=== PATIENT | female | born 1995 | race Caucasian/White ===

== ENCOUNTER 2020-11-09 20:37 | Emergency (ER) | payer BC, SELFPAY ==
[2020-11-09 20:55] VITALS: BP 136/73; PULSE 98; RESP 17; TEMP 36.8; O2SAT 98; BMI 32.2
--- NOTE | 2020-11-09 21:14 | PC.NURSE ---
called [facility] for records. found out patient registered under [facility].
--- NOTE | 2020-11-09 21:56 | XR_ITS ---
PROCEDURE: XR CHEST 2V CLINICAL HISTORY: SHORTNESS OF AIR Chest pain, smoker COMPARISON: No exams were available for comparison FINDINGS: The cardiomediastinal silhouette and pulmonary vascularity are within normal limits. The lungs are clear without infiltrates, suspicious nodules, or pleural effusions. There is mild blunting of left costophrenic angle probably due to scarring. There are partially calcified hilar nodes bilaterally. No acute bony abnormalities. IMPRESSION: No acute findings. Dictated by: Dr. Romaine Roth MD 11/10/2020 08:35 Dr. Romaine Roth MD in [place] 11/10/2020 08:35
[2020-11-09 22:01] LABS: Microscopic, Urine URINE MICROSCOPIC (MICROSCOPIC)
[2020-11-09 22:08] LABS: Appearance,Urine CLEAR (Clear); Bilirubin,Urine Negative (Negative); Blood, Urine Negative (Negative); Color,Urine YELLOW (Yellow); Glucose,Urine (UA) Negative (Negative); Ketones,Urine Negative (Negative); Leukocyte Esterase,Urine Negative (Negative); Nitrate,Urine Negative (Negative); Protein,Urine Negative (Negative); Specific Gravity, Urine 1.015 (1.005-1.030); Urobilinogen,Urine 0.2 EU/dl (0.2)
[2020-11-09 22:10] LABS: Urine Pregnancy, HCG Qual. Negative (Negative)
[2020-11-09 22:30] VITALS: BP 111/77; PULSE 86; RESP 16; O2SAT 100
[2020-11-09 22:34] LABS: Chloride 105 mmol/L (98-107); Potassium 3.6 mmoL/L (3.5-5.1); Sodium 139 mmol/L (136-145)
[2020-11-09 22:37] LABS: Anion Gap 10.6 mEq/L (5-15); Blood Urea Nitrogen 5 mg/dl (7-17); Calcium 8.9 mg/dl (8.4-10.2); Carbon Dioxide 27 mmol/L (22.0-30.0); Creatinine Clearance Estimated 168 mL/min (50-200); Estimated Glomerular Filt Rate 121 ml/min (>60); GFR (African American) 146 ML/MIN (>60); Glucose 98 mg/dl (74-100)
[2020-11-09 22:41] LABS: Basophils # 0.1 K/mm3 (0-0.2); Basophils % 0.8 % (0.1-2.0); Eosinophils # 0.4 K/mm3 (0.0-0.4); Eosinophils % 6.3 % (0.1-12.0); Hematocrit 37.7 % (37.0-47.0); Hemoglobin 12.6 g/dL (12.2-16.2); Lymphocytes # 2.2 K/mm3 (0.7-4.5); Lymphocytes % 34.9 % (10-50); Mean Corpuscular HGB Conc 33.4 g/dL (31.8-35.4); Mean Corpuscular Hemoglobin 30.1 pg (27.0-31.2); Mean Corpuscular Volume 90.2 fl (81-99); Mean Platelet Volume 6.9 fl (7.4-10.4); Monocytes # 0.5 K/mm3 (0.1-1.0); Monocytes % 8.4 % (1.7-9.3); Neutrophils # 3.2 K/mm3 (1.8-7.8); Neutrophils % 49.6 % (37.0-80.0); Platelet Count 253 K/mm3 (142-424); Red Blood Count 4.18 M/mm3 (4.20-5.40); White Blood Count 6.4 K/mm3 (4.8-10.8)
[2020-11-09 23:00] VITALS: BP 115/72; PULSE 93; RESP 16; O2SAT 100
--- NOTE | 2020-11-09 23:24 | HMH.EDSOB ---
ED Disposition Clinical Impression: Bronchitis Disposition: Home, Self-Care Condition on Discharge: Good Instructions: DI for Shortness of Breath Additional Instructions: see pcp for follow up next week Prescriptions: predniSONE [Prednisone 20mg Tab] 20 mg PO BID #10 tab Transmission Status: Pending to [id number] Referrals: PCP,No [Primary Care Provider] - - Critical Care Critical Care Time: No Attestation: On 11/09/20, the high probability of a clinically significant, sudden or life threatening deterioration of the following system(s) required my full and direct attention, intervention and personal management. The time I documented below is in addition to time spent performing reported procedures but includes the following listed in this critical care notation. Medical Decision Making - Medical Records Medical records reviewed: Yes: I reviewed the patient's medical records. - Charles Inquiry Pt receiving controlled substance: No Vital Signs: 11/09/20 20:55 Temperature 98.2 F Temperature Source Oral Pulse Rate [Right Brachial] 98 H Respiratory Rate 17 Blood Pressure [Right Arm] 136/73 Blood Pressure Mean [Right Arm] 94 Blood Pressure Source [Right Arm] Automatic Cuff Blood Pressure Position [Right Arm] Sitting 02 Sat by Pulse Oximetry 98 Oxygen Delivery Method Room Air - Lab Data Lab results reviewed: Yes: I reviewed the patient's lab results. Lab Results 11/09/20 21:00: Urine Color Yellow, Urine Appearance Clear, Urine pH 6.0, Ur Specific [place] 1.015, Urine Protein Negative, Urine Glucose (UA) Negative, Urine Ketones Negative, Urine Blood Negative, Urine Nitrate Negative, Urine Bilirubin Negative, Urine Urobilinogen 0.2, Ur Leukocyte Esterase Negative, Ur Squamous Epith Cells 10-20 11/09/20 21:00: Urine HCG, Qual Negative 11/09/20 22:15: WBC 6.4, RBC 4.18 L, Hgb 12.6, Hct 37.7, MCV 90.2, MCH 30.1, MCHC 33.4, RDW 14.0, Plt Count 253, MPV 6.9 L, Neut % (Auto) 49.6, Lymph % (Auto) 34.9, [place] % (Auto) 8.4, Eos % (Auto) 6.3, Baso % (Auto) 0.8, Neut # (Auto) 3.2, Lymph # (Auto) 2.2, [place] # (Auto) 0.5, Eos # (Auto) 0.4, Baso # (Auto) 0.1 11/09/20 22:15: Sodium 139, Potassium 3.6, Chloride 105, Carbon Dioxide 27, Anion Gap 10.6, BUN 5 L, Creatinine 0.60, Estimated Creat Clear 168, Estimated GFR 121, Est GFR ( Amer) 146, Glucose 98, Calcium 8.9 Result diagrams: 11/09/20 22:15 11/09/20 22:15 Orders (Tests/Meds): ORDERS Category Date Time Status Chest XR 2 view (NOT portable) [XR chest 2V] Stat Exams 11/09/20 21:56 Taken - Radiology Data #1 Image(s): Chest Image Reviewed: Yes I reviewed the patient's radiology image Preliminary Findings: Normal/NAD Medical Decision Narrative: will need to follow up with pcp at this time Resp/SOB HPI - General Chief Complaint: Shortness of Breath/Dyspnea Stated Complaint: cough,congestion Time Seen by Provider: 11/09/20 22:00 Mode of Arrival: Family Vehicle Source of Information: Patient, Medical Record Limitations: No Limitations Description of Symptoms (Recalled from ER Triage Doc. by RN): states she was diagnosed with the type a flu and pneumonia at [facility] in the last two days and placed on two atb's one of which was azithromycin and she doesn't know the otherone. she states she breathes heavy, sees black spots, and then falls out . denies any fever, states she feels worse than she ever did . - History of Present Illness pt reports resp illness and seen at [facility] and [facility] - no covid -19 but has flu - still does not feel well on meds however Complaint: shortness of breath Context: recent illness Severity: moderate Associated symptoms: denies other symptoms - Related Data Home oxygen amount: none Previous Rx's Medication Instructions Recorded predniSONE [Prednisone 20mg 20 mg PO BID #10 tab 11/10/20 Tab] Allergies Allergy/AdvReac Type Severity Re
[2020-11-10 00:32] VITALS: BP 113/77; PULSE 83; RESP 16; TEMP 36.6; O2SAT 98
== END 2020-11-10 00:41 | disposition home or self-care (01) ==
PROVIDERS: Emergency Provider Emergency Medicine
DX: J20.9 Acute bronchitis, unspecified (principal)
CPT/HCPCS: 71046; 80048; 81001; 81025; 85025; 96374; 99283

== ENCOUNTER 2020-12-31 10:20 | Emergency (ER) | payer BC, SELFPAY ==
[2020-12-31 10:21] VITALS: BP 114/87; PULSE 103; RESP 20; TEMP 36.9; O2SAT 97; BMI 33.5
[2020-12-31 10:36] VITALS: BMI 33.5
--- NOTE | 2020-12-31 10:40 | US_ITS ---
PROCEDURE: US TRANSVAGINAL CLINICAL INDICATION: LLQ pain COMPARISON: No exams were available for comparison FINDINGS: UTERUS: 6cm x 4cmx 3cm with a combined endometrial thickness of 4.4mm LEFT OVARY: [id number] with a volume of 5.9ml. RIGHT OVARY: [id number] with a volume of 10ml. Small bilateral ovarian follicles noted. No cul-de-sac fluid apparent. IMPRESSION: Negative pelvic ultrasound Dictated by: Jono Stockton MD 12/31/2020 13:19 Jono Stockton MD in [place] 12/31/2020 13:19
--- NOTE | 2020-12-31 10:41 | PC.NURSE ---
Calling [facility] to request CT scan results per ER physician request
[2020-12-31 10:42] LABS: MANUAL DIFFERENTIAL MANUAL DIFFERENTIAL (MANUAL DIFF)
[2020-12-31 10:42] LABS: Microscopic, Urine URINE MICROSCOPIC (MICROSCOPIC)
--- NOTE | 2020-12-31 10:42 | HMH.EDGENADL ---
ED Disposition Clinical Impression: Abdominal distention, Bloating, Gastrointestinal food sensitivity Ovarian cyst Qualifiers: Laterality: bilateral Qualified Code(s): N83.201 - Unspecified ovarian cyst, right side; N83.202 - Unspecified ovarian cyst, left side Disposition: Home, Self-Care Condition on Discharge: Fair Instructions: DI for Acute Abdominal Pain, DI for Irritable Bowel Syndrome, DI for Ovarian Cyst Additional Instructions: You have been evaluated for abdominal distention, pain. Possibly due to ovarian cysts. Possibly due to food sensitivities. Please follow a food elimination diet. Go 2 weeks without eating lactose. Then 2 weeks without eating gluten. See if this changes your symptoms. Follow-up with your primary care doctor. You may need to see gastroenterology. Return to the emergency department for any new or worsening symptoms, pain, vomiting, other concerns. Referrals: Matthias Baires MD [Primary Care Provider] - Time of Disposition: 11:38 - Critical Care Critical Care Time: No Attestation: On 12/31/20, the high probability of a clinically significant, sudden or life threatening deterioration of the following system(s) required my full and direct attention, intervention and personal management. The time I documented below is in addition to time spent performing reported procedures but includes the following listed in this critical care notation. Medical Decision Making - Medical Records Medical records reviewed: Yes: I reviewed the patient's medical records. - Charles Inquiry Pt receiving controlled substance: No Vital Signs: 12/31/20 10:21 Temperature 98.5 F Temperature Source Oral Pulse Rate [Left Radial] 103 H Respiratory Rate 20 Blood Pressure [Right Arm] 114/87 Blood Pressure Mean [Right Arm] 96 Blood Pressure Source [Right Arm] Automatic Cuff Blood Pressure Position [Right Arm] Sitting 02 Sat by Pulse Oximetry 97 Oxygen Delivery Method Room Air - Lab Data Lab Results 12/31/20 10:26: Urine Color Yellow, Urine Appearance Clear, Urine pH 8.5, Ur Specific [place] 1.015, Urine Protein Negative, Urine Glucose (UA) Negative, Urine Ketones Negative, Urine Blood Negative, Urine Nitrate Negative, Urine Bilirubin Negative, Urine Urobilinogen 1.0, Ur Leukocyte Esterase Trace, Urine RBC None, Urine WBC 3-5, Ur Squamous Epith Cells 5-10, Urine Bacteria None 12/31/20 10:26: Urine HCG, Qual Negative 12/31/20 10:33: WBC 4.2 L, RBC 4.33, Hgb 13.2, Hct 38.5, MCV 89.0, MCH 30.5, MCHC 34.3, RDW 13.0, Plt Count 234, MPV 7.5, Neut % (Auto) 51.9, Lymph % (Auto) 34.1, [place] % (Auto) 9.5 H, Eos % (Auto) 3.7, Baso % (Auto) 0.8, Neut # (Auto) 2.2, Lymph # (Auto) 1.4, [place] # (Auto) 0.4, Eos # (Auto) 0.2, Baso # (Auto) 0.0, Total Counted 100, Neutrophils % (Manual) 50, Lymphocytes % (Manual) 37, Monocytes % (Manual) 8, Eosinophils % (Manual) 5 H, Platelet Estimate Normal, RBC Morphology Normal 12/31/20 10:33: Sodium 139, Potassium 3.9, Chloride 109 H, Carbon Dioxide 26, Anion Gap 7.9, BUN 7, Creatinine 0.50 L, Estimated Creat Clear 210, Estimated GFR 149, Est GFR ( Amer) 180, Glucose 117 H, Calcium 8.6, Total Bilirubin 0.3, AST 30, ALT 14, Alkaline Phosphatase 83, Total Protein 6.6, Albumin 3.9, Globulin 2.7, Albumin/Globulin Ratio 1.4 12/31/20 10:33: Lipase 119 Result diagrams: 12/31/20 10:33 12/31/20 10:33 Orders (Tests/Meds): ORDERS Category Date Time Status US RUQ [US abdomen limited] Stat Exams 12/31/20 10:40 Ordered US Pelvic Stat Ultrasound 12/31/20 10:40 Ordered Medical Decision Narrative: In summary this is a 25-year-old female presenting to the emergency department with left-sided abdominal pain. Patient clinically stable on arrival. Vital signs within normal limits. Description of symptoms is most consistent with food sensitivity, IBS, constipation, colitis. Also concern for biliary tract pathology, ovarian cyst. Will obtain CBC, CMP, lipase, urinalysis, right upper quadrant ul
[2020-12-31 10:45] LABS: Basophils % 0.8 % (0.1-2.0); Eosinophils # 0.2 K/mm3 (0.0-0.4); Eosinophils % 3.7 % (0.1-12.0); Hematocrit 38.5 % (37.0-47.0); Hemoglobin 13.2 g/dL (12.2-16.2); Lymphocytes # 1.4 K/mm3 (0.7-4.5); Lymphocytes % 34.1 % (10-50); Mean Corpuscular HGB Conc 34.3 g/dL (31.8-35.4); Mean Corpuscular Hemoglobin 30.5 pg (27.0-31.2); Mean Platelet Volume 7.5 fl (7.4-10.4); Monocytes # 0.4 K/mm3 (0.1-1.0); Monocytes % 9.5 % (1.7-9.3); Neutrophils # 2.2 K/mm3 (1.8-7.8); Neutrophils % 51.9 % (37.0-80.0); Platelet Count 234 K/mm3 (142-424); Red Blood Count 4.33 M/mm3 (4.20-5.40); White Blood Count 4.2 K/mm3 (4.8-10.8)
[2020-12-31 10:47] LABS: Appearance,Urine CLEAR (Clear); Bilirubin,Urine Negative (Negative); Blood, Urine Negative (Negative); Color,Urine YELLOW (Yellow); Glucose,Urine (UA) Negative (Negative); Ketones,Urine Negative (Negative); Leukocyte Esterase,Urine TRACE (Negative); Nitrate,Urine Negative (Negative); PH,Urine 8.5 (5.0-8.5); Protein,Urine Negative (Negative); Specific Gravity, Urine 1.015 (1.005-1.030)
[2020-12-31 10:48] LABS: Urine Pregnancy, HCG Qual. Negative (Negative)
[2020-12-31 10:51] LABS: Lipase 119 U/L (23-300)
[2020-12-31 10:52] LABS: Alanine Aminotransferase 14 U/L (12-78); Albumin Level 3.9 g/dl (3.5-5.0); Albumin/Globulin Ratio 1.4 (1.1-1.8); Alkaline Phosphatase 83 U/L (38-126); Anion Gap 7.9 mEq/L (5-15); Aspartate Amino Transferase 30 U/L (14-36); Bilirubin,Total 0.3 mg/dl (0.2-1.3); Blood Urea Nitrogen 7 mg/dl (7-17); Calcium 8.6 mg/dl (8.4-10.2); Carbon Dioxide 26 mmol/L (22.0-30.0); Chloride 109 mmol/L (98-107); Creatinine Clearance Estimated 210 mL/min (50-200); Estimated Glomerular Filt Rate 149 ml/min (>60); GFR (African American) 180 ML/MIN (>60); Globulin 2.7 g/dL (1.3-3.2); Glucose 117 mg/dl (74-100); Potassium 3.9 mmoL/L (3.5-5.1); Sodium 139 mmol/L (136-145); Total Protein,Serum 6.6 g/dl (6.3-8.2)
--- NOTE | 2020-12-31 10:57 | PC.NURSE ---
Faxed PHI form signed by patient to [facility] at [phone]
[2020-12-31 11:01] VITALS: BP 110/68; PULSE 81; O2SAT 100
--- NOTE | 2020-12-31 11:24 | PC.NURSE ---
Patient gone to rad.
[2020-12-31 11:26] LABS: Eosinophils % 5 % (0-3); Lymphocytes % 37 % (10-50); Monocytes % 8 % (2-9); Neutrophils % 50 % (42-76); Total Cells Counted 100
[2020-12-31 11:27] LABS: Platelet Estimate Normal; RBC Morphology Normal
[2020-12-31 11:40] VITALS: BP 113/72; PULSE 80; O2SAT 99
--- NOTE | 2020-12-31 11:41 | PC.NURSE ---
Gave preliminary US report from [facility]
[2020-12-31 12:00] VITALS: BP 117/81; PULSE 79; O2SAT 98
[2020-12-31 12:35] VITALS: BP 117/81; PULSE 79; RESP 19; TEMP 36.9; O2SAT 98
== END 2020-12-31 12:36 | disposition home or self-care (01) ==
PROVIDERS: Emergency Provider Emergency Medicine; PCP Family Medicine
DX: T78.1XXA Other adverse food reactions, not elsewhere classified, initial encounter (principal); R14.0 Abdominal distension (gaseous); N83.201 Unspecified ovarian cyst, right side; F17.210 Nicotine dependence, cigarettes, uncomplicated; F12.10 Cannabis abuse, uncomplicated
CPT/HCPCS: 76830; 80053; 81001; 81025; 83690; 85007; 85014; 85018; 85048; 85049; 99283

== ENCOUNTER → 2021-01-08 08:02 | Outpatient (CLI) | payer BC, SELFPAY ==
--- NOTE | 2021-01-08 08:09 | US_ITS ---
PROCEDURE: US ABDOMEN LIMITED CLINICAL INDICATION: abd pain COMPARISON: No exams were available for comparison FINDINGS: PANCREAS: Unremarkable. No obvious mass or abnormal fluid collection. No ductal dilatation LIVER: No focal liver lesions demonstrated. Homogeneous echogenicity. No intrahepatic biliary ductal dilatation evident. There is appropriate direction of blood flow within a non dilated portal vein RIGHT KIDNEY: Unremarkable. Normal size and echogenicity. No hydronephrosis GALLBLADDER: No gallstones, gallbladder wall thickening, pericholecystic fluid, or biliary dilatation. IMPRESSION: Unremarkable limited abdominal ultrasound as detailed above disc Dictated by: Jono Stockton MD 01/08/2021 14:24 Jono Stockton MD in [place] 01/08/2021 14:24
== END ==
PROVIDERS: PCP Family Medicine; Visit Provider Family Medicine
DX: R10.9 Unspecified abdominal pain (principal)
CPT/HCPCS: 76705

== ENCOUNTER → 2021-02-25 15:02 | Outpatient (CLI) | payer BC, SELFPAY ==
[2021-02-27 23:47] LABS: Deamidated Gliadin Abs, IgA 5 units (0-19); Deamidated Gliadin Abs, IgG 2 units (0-19); Endomysial IgA Antibody Negative (Negative); Tissue Transglutaminase IgA Ab <2 U/mL (0-3); Tissue Transglutaminase IgG Ab <2 U/mL (0-5)
[2021-02-28 06:11] LABS: Reticulin IgA Antibody Negative titer (Neg:<1:2.5)
== END ==
PROVIDERS: Visit Provider Family Medicine
DX: R14.0 Abdominal distension (gaseous) (principal)
CPT/HCPCS: 83516; 86255; 86256